=== PATIENT | male | born 1990 | race African-American/Black ===

== ENCOUNTER 2020-05-25 06:38 | Emergency (ER) | payer OTHER, SELFPAY ==
[~2020-05-25] VITALS: Ht 170.2 cm; Wt 63.6 kg
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
[2020-05-25 10:21] VITALS: BP 13/84
== END 2020-05-25 10:34 | disposition home or self-care (01) ==
LOC: M ED 06:38
DX: S90.02XA Contusion of left ankle, initial encounter (principal); M54.2 Cervicalgia; V49.40XA Driver injured in collision with unspecified motor vehicles in traffic accident, initial encounter

== ENCOUNTER 2020-09-29 09:03 | Emergency (ER) | payer SELFPAY ==
[~2020-09-29] VITALS: Ht 170.2 cm; Wt 64.5 kg
[2020-09-29 11:12] LABS: GC DNA AMPLIFICATION NEGATIVE (NEGATIVE)
[2020-09-29] MEDS ORDERED: BACT800T5 PO (12:12)
[2020-09-29 12:21] VITALS: BP 136/81
[2020-09-29 12:41] LABS: BASO % 0.5 % (0.0-1.0); EOS # 0.5 10^3/uL (0.0-0.5); EOS % 5.9 % (0.0-3.0); HEMATOCRIT 46.8 % (42.0-52.0); HEMOGLOBIN 15.8 g/dl (13.5-17.5); LYMPH # 2.2 10^3/uL (1.5-5.0); LYMPH % 28.5 % (24.0-44.0); MEAN CORPUSCULAR HEMOGLOBIN 29.2 pg (27.0-33.0); MEAN CORPUSCULAR HGB CONC 33.8 g/dl (32.0-36.5); MEAN CORPUSCULAR VOLUME 86.5 fl (80.0-96.0); MONO # 0.6 10^3/uL (0.0-0.8); MONO % 8.2 % (2.0-8.0); NEUTROPHILS # 4.4 10^3/uL (1.5-8.5); NEUTROPHILS % 56.6 % (36.0-66.0); PLATELET COUNT, AUTOMATED 172 10^3/uL (150-450); RED BLOOD COUNT 5.41 10^6/uL (4.30-6.10); WHITE BLOOD COUNT 7.8 10^3/uL (4.0-10.0)
[2020-09-30 16:27] LABS: HEPATITIS B SURFACE ANTIBODY POSITIVE (POSITIVE); HEPATITIS B SURFACE ANTIGEN NEGATIVE (NEGATIVE)
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
[2020-10-07 15:55] LABS: HIV 1&2 SCREEN CENTAUR REACTIVE (NEGATIVE)
== END 2020-09-29 12:34 | disposition home or self-care (01) ==
LOC: M ED 09:03
DX: N39.0 Urinary tract infection, site not specified (principal); N40.0 Benign prostatic hyperplasia without lower urinary tract symptoms; R36.0 Urethral discharge without blood; F17.200 Nicotine dependence, unspecified, uncomplicated